=== PATIENT | male | born 1990 | race Caucasian/White ===

== ENCOUNTER 2024-09-30 16:25 | Emergency (ER) | payer OTHER, SELFPAY ==
[2024-09-30 16:32] VITALS: BP 152/99
[2024-09-30 16:59] LABS: Hematocrit 49.0 % (39.0-52.0); Hemoglobin 16.7 g/dL (13.0-18.0); Mean Corp Hgb Conc. 34.1 g/dL (33.0-37.0); Mean Corpuscular Volume 85.8 fL (80.0-94.0); Nucleated Red Blood Cells % 0 % (-); Platelet Count 300 10^3/uL (130-400); Red Cell Dist. Width 12.6 % (11.5-14.5)
[2024-09-30 17:14] LABS: ALT (SGPT) 58 U/L (0-50); AST (SGOT) 32 U/L (17-59); Albumin 5.0 g/dl (3.5-5.0); Alkaline Phosphatase 89 U/L (38-126); Blood Urea Nitrogen 12 mg/dl (9-20); Calcium 10.0 mg/dl (8.4-10.2); Carbon Dioxide 27 mmol/L (22-30); Chloride 101 mmol/L (98-107); Glucose 112 mg/dl (70-99); Potassium 4.2 mmol/L (3.5-5.1); Sodium 137 mmol/L (135-145); Total Protein 8.6 g/dl (6.3-8.2); eGFR > 60.00
[2024-09-30 18:42] VITALS: BP 130/90
--- NOTE | 2024-09-30 18:52 | EDRN ---
Elbow joint fluid walked to lab.
--- NOTE | 2024-09-30 21:42 | ED.SKININJ ---
HPI-Injury
General
Chief Complaint: Skin Problem
Source: patient
Exam Limitations: none
Time Seen by Provider: 09/30/24 17:49
Nursing documentation reviewed up to this point in time: agreed with
History of Present Illness-Injury
Is this injury a work related problem?: No
Is pt an associate of [facility]?: No
Initial Injury comments:
Patient to ED with complaitn of swelling to left posterior elbow. No history of trauma. He was seen at and told it was bursitis but placed on doxycycline for possible lyme infection. He does not report any improvement on doxy. Denies
fever/chills. Reports redness and swelling to forearm. Brought self to ED for eval.
Past History
Past History
ED Past Medical History: Other (ADHD)
Social History
Tobacco: Non-smoker
Alcohol: Occasional
Living: with family
Review of Systems
Review of Systems
Allergies reviewed?: Yes
All Other Systems: ROS reviewed and negative except as documented in HPI and ROS
Constitutional: Reports no symptoms
EENT: Reports no symptoms
Respiratory: Reports no symptoms
Cardiac: Reports no symptoms
ABD/GI: Reports no symptoms
: Reports no symptoms
Musculoskeletal: Reports joint swelling (swelling to left postgerior elbow)
Skin: Reports other (reports redness and swelling to left forearm)
Neurological: Reports no symptoms
Psychiatric: Reports no symptoms
Phy Exam
General Physical Exam
General Presentation: well appearing and no apparent distress
General age: appears stated age
General Skin: warm and dry
General Habitus: normal
General Mental: alert
Musculoskeletal Exam
Musculoskeletal Exam: full ROM, neuro vasc intact and other (mild swelling to left posterior elbow concsistent with bursitis. No pain to joint. Full ROM)
Skin Exam
Skin Exam: normal color, warm/dry, no rash and other (no erythema or swelling noted to left forearm)
Psychiatric Exam
Psychiatric Exam: normal mood/affect
Course
Orders/Labs/Results
Orders:
Orders
09/30/24 16:36
Elbow, Left [CR Elbow - Left Min 3 Views ] Urgent
Comment:
Reason For Exam: Pain/swelling
09/30/24 16:42
Complete Blood Count/With Diff Urgent
Comprehensive Metabolic Panel Urgent
Lyme Progressive Urgent
09/30/24 18:40
Fluid Culture with Gram Stain Urgent
DREW Source: Joint Fluid
Specimen Description:
Date Specimen was Collected: 09/30/24
Time Specimen was Collected: 18:36
Abnormal Lab Results
09/30/24
16:42
WBC 11.5 H 10^3/uL
(4.8-10.8)
Abs Immat Gran (auto) 0.2 H 10^3/uL
(0-0.05)
Absolute Neuts (auto) 7.9 H 10^3/uL
(1.4-6.5)
Absolute Monos (auto) 0.9 H 10^3/uL
(0.1-0.6)
Immature Gran % 1.3 H %
(0-0.5)
Glucose 112 H mg/dl
(70-99)
ALT 58 H U/L
(0-50)
Total Protein 8.6 H g/dl
(6.3-8.2)
09/30/24 16:42
09/30/24 16:42
Vital Signs
Initial and Last Documented VS:
Initial Vital Signs
Temp Pulse Resp BP Pulse Ox
98.7 F 81 17 152/99 99
09/30/24 16:32 09/30/24 16:32 09/30/24 16:32 09/30/24 16:32 09/30/24 16:32
Last Documented Vital Signs
Temp Pulse Resp BP Pulse Ox
98.7 F 75 16 130/90 98
09/30/24 16:32 09/30/24 18:42 09/30/24 18:42 09/30/24 18:42 09/30/24 18:42
*Radiology
Radiology exam reviewed: radiology read reviewed
*Pulse Oximetry
SaO2: 98
Oxygen Mode of Delivery: Room air
Patient hypoxic: no
*Critical Care Note
Total Time (30-74mins, 75-104mins- exclusive of procedures): Not Applicable
Update Note
Update Note:
Patient to ED wt report of continued swelling to left posterior elbow despite being placed on doxy 10 days ago. No fever/chills. He reports redness and swelling to his forearm before each dose of antibiotic is due. I did not see this, He has
mild swelling to left posterior elbow consistent with bursities, Site cleansed with NSS, betadine and 1cc clear, blood tinged fluid aspirated, sent to lab. CUlture results are pending. Doubt infection at this time but naren recommend he continue
doxy. NO redness or pain at site. He will be discharged home and he was given number for ortho follow up. Given instructions on s/s to return to ED.
ED Attending Note
-
Portions of this chart may have been created with voice recognition software.� Occasional wrong word or��sound alike� substitutions may have occurred due to the inherent limitations of voice recognition software.
Discharge Plan
Departure
Patient Disposition: Home (Routine Discharge)
Date of Disposition: 09/30/24
Time of Disposition: 19:17
Patient with high blood pressure during this ER visit?: No
Condition: Good
Covid-19: Not Applicable
Discharge Problem:
Bursitis of left elbow
Instructions: Bursitis - ED discharge instructions
Prescriptions:
No Action
Vyvanse
1 tab PO DAILY
Patient Comments:
unsure of dose
oxycodone-acetaminophen 5 MG/325 MG tablet
1 tab PO Q4HPRN PRN (Reason: pain) Qty: 12 0RF
amoxicillin-pot clavulanate 1 TABLET tablet
1 tab PO Q12 Qty: 20 0RF
mupirocin 1 APPLIC ointment
1 applic topical TID Qty: 15 0RF
Referrals:
Carter Whittington DO [Family Provider, Family Practice]
Hussein Shields MD [Active, Orthopedics] - Call in 1-3 days for appt
Activity Restrictions/Additional Instructions:
Return to the emergency department immediately for fever/chills, increasing pain/redness/swelling to your elbow. Continue doxycyline as prescribed.
Interventions
Interventions:
*Risk Screen - Suicide Last Done: 09/30/24 16:34
*General Assessment Last Done: 09/30/24 16:34
*Neglect/Abuse Screening Last Done: 09/30/24 16:34
*ED- Fall Risk Assessment Last Done: 09/30/24 18:42
*ED COVID-19 Vaccine History Last Done: 09/30/24 16:34
*Nursing Disposition Last Done: 09/30/24 19:29
ED-Skin Assessment Last Done: 09/30/24 18:42
Discharge Date and Time
Discharge Date/Time: 09/30/24 19:30
Print Language: ERITREAN
Musculoskeletal Injury Exam
Musculoskeletal Injury Exam
Left Posterior Elbow:
Pain with Movement?: None
Tender to palpation?: Mild
Soft tissue swelling?: Mild
External deformity and angulation?: None
Joint effusion?: None
Contusion?: None
Hematoma-local bleeding into tissue?: None
Strain- Sprain- Tear (Connective tissue injury)?: None
Crepitus with movement?: No
Joint instability?: No
Malalignment/deformity?: No
Range of motion: Full
Distal skin color and temperature: normal-warm & good color
Capillary Refill: normal
Normal distal neurovascular exam?: Yes
Peripheral Pulses: radial (left): 3+
[2024-10-02 15:31] LABS: Lyme Antibody Screen, EIA Negative (Negative)
== END 2024-09-30 19:30 | disposition home or self-care (01) ==
LOC: EMR 16:25
PROVIDERS: EMERGENCY PHYSICIAN Emergency Medicine; FAMILY PHYSICIAN Family Medicine
DX: M70.32 Other bursitis of elbow, left elbow (principal); F90.9 Attention-deficit hyperactivity disorder, unspecified type
CPT/HCPCS: 99283; 73080; 80053; 85025; 86618; 87015; 87070; 87205